=== PATIENT | male | born 1955 | race Caucasian/White ===

== ENCOUNTER 2021-09-20 10:21 | Emergency (ER) | payer OTHER, MEDICARE, SELFPAY ==
[2021-09-20 10:23] VITALS: BP 125/37; PULSE 77; RESP 18; TEMP 36.6; O2SAT 96; BMI 23.3
--- NOTE | 2021-09-20 10:45 | EDS_ITS ---
HPI History of Present Illness Chief Complaint: Abn Labs Detail of Chief Complaint: lightheadedness Informant: patient Onset/Context/Timing Onset: Days (2) Context: Gradual Onset Timing: Intermittent Quality: lightheadedness Location: head Current Severity: Gone Maximum Severity: Moderate Worsened by: standing up fast Relieved by: resting Associated Symptoms Associated Symptoms: none others Narrative Narrative: Patient is here in [place] on vacation to visit family from [place], he has been here for 2 days and is leaving tomorrow. He has been for possible occult GI bleeding because he has had anemia of unknown cause, requiring blood transfusions periodically. He is on Eliquis and aspirin because of chronic A. fib and history of blood clots. The day before he left, he had a skin graft on his left leg that is not supposed to be unwrapped or looked at until he gets home, and he had blood counts done and they told him that they were good and he was fine to go to [place]. However they called him yesterday and said that there was an error and that he needs a blood transfusion immediately and needs to go to the nearest emergency department. He feels a little lightheaded when he stands up quickly, but otherwise he denies any other symptoms that are new. He states otherwise he is doing fine. He denies any symptoms of bleeding from an ywhere including GI bleeding. [facility] Medical History (Updated 09/20/21 @ 17:[address] Ehsan Sainz MD) Anemia CAD (coronary artery disease) Cardiac defibrillator in place CHF (congestive heart failure) Pacemaker Allergy/AdvReac Type Severity Reaction Status Date / Time clopidogrel [From Plavix] Allergy Rash Verified 09/20/21 10:23 gabapentin Allergy Shortness Verified 09/20/21 10:23 of breath Surgical History (Updated 09/20/21 @ 11:29 by Whitney Phan) Hx of CABG Status post skin graft Social History Smoking Status: Never smoker ROS ROS ED Constitutional Constitutional ED: Denies chills or fever(s) Eyes Eyes: Denies change in vision or diplopia ENT ENT ED: Denies rhinorrhea or sore throat Cardiovascular Cardiovascular: Reports lightheadedness and pedal edema; Denies chest pain or palpitations Respiratory/Chest Respiratory/Chest: Denies cough or dyspnea Gastrointestinal Gastrointestinal: Denies abdominal pain, diarrhea, nausea or vomiting Genitourinary Genitourinary ED: Denies dysuria or hematuria Musculoskeletal Musculoskeletal: Denies back pain or neck pain Integumentary Denies abscess or rash Neurologic Neurologic: Denies headache(s), paresthesias or weakness Psychiatric Psychiatric: Denies anxiety or suicidal thoughts EXAM Physical Exam Const Vital Signs: 09/20/21 10:23 09/20/21 11:30 09/20/21 13:51 Temperature 97.8 F 97.5 F L Temperature Source Temporal Oral Pulse Rate 77 80 Respiratory Rate 18 16 Respiratory Effort Short of Breath Blood Pressure 125/37 H 132/71 H Blood Pressure Mean 66 91 Blood Pressure Source Manual Blood Pressure Position Semi-Fowlers Blood Pressure Location Right Arm Pulse Ox 96 96 Oxygen Delivery Method Room Air Room Air 09/20/21 14:06 09/20/21 15:06 09/20/21 16:00 Temperature 97.3 F L 97.8 F 97.0 F L Temperature Source Oral Oral Oral Pulse Rate 80 72 73 Respiratory Rate 18 17 16 Respiratory Effort Blood Pressure 117/71 104/67 140/64 H Blood Pressure Mean 86 79 89 Blood Pressure Source Monitor Monitor Monitor Blood Pressure Position Semi-Fowlers Semi-Fowlers Semi-Fowlers Blood Pressure Location Right Arm Right Arm Right Arm Pulse Ox 92 92 96 Oxygen Delivery Method Room Air Room Air Positive well nourished and well developed General Appearance ED: well developed and NAD HEENT Reports moist mucous membranes normocephalic and atraumatic Eyes PERRL and EOMs intact bilaterally Neck full ROM and supple Resp normal respiratory effort and clear to auscultation bilaterally Cardio regular rate, regular rhythm and no murmurs GI non-tender and non-distended Auscultation: normoactive bowel sounds Palpation: soft Back/Spine no CVA tenderness General Back: other FROM Extremity normal to inspection General Extremety ED: Yes edema; Negative for pulses abnormal or tenderness General Extremity: edema bilateral lower extremity Details: moderate; Negative for pulses abnormal Neuro oriented x3, CN's II-XII intact bilaterally and no sensory deficits noted Sensorium / Orientation: awake and alert Motor Exam: strength 5/5 throughout Skin no rashes or lesions noted Skin Narrative: Wrap around left lower leg/ankle with dressing that is dry on the outside MDM MDM MDM Narrative Medical decision making narrative: Patient has a hemoglobin of 6.9, which meets criteria for blood transfusion which he consented for as he has had them before. He was given 1 unit of blood after type and cross him. It is noted that his renal function is abnormal with a BUN of 80 and a creatinine of 2.33. I did receive prior labs and a note from [facility] where his compressor battery pellets is, in [facility]. 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 3 days ago on 09/17, his BUN was 96 and his creatinine 2.13. I feel this is not a significant change from that. He states he sees nephrology. Therefore after the unit of blood, he will be ready for discharge home. Lab Data Attestation: I reviewed the patient's lab results. Labs: Laboratory Results - last 24 hr 09/20/21 09/20/21 09/20/21 11:30 11:30 12:00 WBC 9.0 RBC 2.33 L Hgb 6.9 L Hct 22.0 L MCV 94.4 H MCH 29.6 MCHC 31.4 L RDW Std Deviation 59.9 H RDW Coeff of Елена 17.2 H Plt Count 277 MPV 9.5 Immature Gran % (Auto) 0.300 Neut % (Auto) 79.9 H Lymph % (Auto) 7.2 L [place] % (Auto) 9.7 Eos % (Auto) 2.5 Baso % (Auto) 0.4 Absolute Neuts (auto) 7.2 Absolute Lymphs (auto) 0.64 L Nucleated RBC % 0 Sodium 137 Potassium 3.9 Chloride 99 Carbon Dioxide 32.0 Anion Gap 6 BUN 80 H Creatinine 2.33 H Estim Creat Clear Calc 31.77 Est GFR (MDRD) Af Amer 36 L Est GFR (MDRD) Non-Af 30 L BUN/Creatinine Ratio 34.3 H Glucose 103 Calcium 9.2 Blood Type B POSITIVE Antibody Screen NEGATIVE Crossmatch 09/20/21 12:00 WBC RBC Hgb Hct MCV MCH MCHC RDW Std Deviation RDW Coeff of Елена Plt Count MPV Immature Gran % (Auto) Neut % (Auto) Lymph % (Auto) [place] % (Auto) Eos % (Auto) Baso % (Auto) Absolute Neuts (auto) Absolute Lymphs (auto) Nucleated RBC % Sodium Potassium Chloride Carbon Dioxide Anion Gap BUN Creatinine Estim Creat Clear Calc Est GFR (MDRD) Af Amer Est GFR (MDRD) Non-Af BUN/Creatinine Ratio Glucose Calcium Blood Type Antibody Screen Crossmatch See Detail Discharge Plan Triage Chief Complaint: Abn Labs ED Provider: Ehsan Sainz Dx/Rx/DC Orders Clinical Impression: Acute on chronic blood loss anemia, Other iron deficiency anemias, Chronic kidney failure Instructions: Anemia Primary Care Provider: Care Physician,No Primary Referrals: Doctor,Your [STAFF PHYSICIAN] - 3-5 Days Disposition Disposition: Home, Self Care
[2021-09-20 12:05] LABS: Anion Gap 6 (5-15); BUN 80 mg/dL (7-18); BUN/Creat Ratio 34.3 RATIO (10-20); Calcium,Total 9.2 mg/dL (8.5-10.1); Chloride 99 mmol/L (98-107); Creatinine, Serum 2.33 mg/dL (0.70-1.30); EST Glomerular Filtration Rate 30 mL/min (>60); Est Glom Filt Rate - Afr Amer 36 mL/min (>60); Estimated Creatinine Clearance 31.77 ml/min; Glucose 103 mg/dL (74-106); Potassium 3.9 mmol/L (3.5-5.1); Sodium Level 137 mmol/L (136-145)
[2021-09-20 12:06] LABS: Absolute Lymphocyte Count 0.64 X10^3/uL (0.83-4.51); Absolute Neutrophil Count 7.2 X10^3/uL (2.0-7.7); Basophil# 0.04 X10^3/uL; Basophil% 0.4 % (0-1); Eosinophil# 0.22 X10^3/uL; Eosinophils% 2.5 % (0-5); Hemoglobin 6.9 g/dL (13.0-16.5); Lymphocyte # 0.64 X10^3/ul (0.83-4.51); Lymphocyte % 7.2 % (19-41); Mean Corp Hgb Conc 31.4 g/dL (32-36); Mean Corpuscular Hgb 29.6 pg (27.0-32.0); Mean Corpuscular Volume 94.4 fL (80-94); Mean Platelet Vol. 9.5 fl (6.2-12.0); Monocyte# 0.87 X10^3/uL; Monocyte% 9.7 % (0-10); NRBC Flagged by Analyzer 0 % (0-5); Neutrophil # 7.15 X10^3/uL (2.7-7.7); Neutrophil % 79.9 % (47-70); Platelet Count 277 K/mm3 (150-450); RBC Distribution Width CV 17.2 % (11.6-14.6); RBC Distribution Width SD 59.9 fl (35.1-43.9); Red Blood Count 2.33 M/mm3 (4.6-6.2)
[2021-09-20 13:51] VITALS: BP 132/71; PULSE 80; RESP 16; TEMP 36.4; O2SAT 96
[2021-09-20 14:06] VITALS: BP 117/71; PULSE 80; RESP 18; TEMP 36.3; O2SAT 92
[2021-09-20 15:06] VITALS: BP 104/67; PULSE 72; RESP 17; TEMP 36.6; O2SAT 92
[2021-09-20 16:00] VITALS: BP 140/64; PULSE 73; RESP 16; TEMP 36.1; O2SAT 96
== END 2021-09-20 17:44 | disposition home or self-care (01) ==
PROVIDERS: Emergency Provider Emergency Medicine; Visit Provider Emergency Medicine
DX: D62 Acute posthemorrhagic anemia (principal); I48.20 Chronic atrial fibrillation, unspecified; D50.8 Other iron deficiency anemias; I25.10 Atherosclerotic heart disease of native coronary artery without angina pectoris; Z95.810 Presence of automatic (implantable) cardiac defibrillator; Z79.01 Long term (current) use of anticoagulants; Z79.899 Other long term (current) drug therapy; Z86.718 Personal history of other venous thrombosis and embolism; N18.9 Chronic kidney disease, unspecified
CPT/HCPCS: 80048; 85025; 86850; 86900; 86901; 86920; 99283; J7050; P9016; A4216